=== PATIENT | female | born 1995 | race Caucasian/White ===

== ENCOUNTER → 2020-05-13 | Outpatient (CLI) | payer OTHER ==
[~2020-05-13] MED LIST: FLEXERIL 1010 MG/TAB PO; LORTAB 5/500 501 TAB PO; MOTRIN 600600 MG/TAB PO
== END ==
LOC: MC.RAD 09:06
DX: N63.10 Unspecified lump in the right breast, unspecified quadrant (principal); M25.531 Pain in right wrist